=== PATIENT | female | born 2000 | race Two or more races ===

== ENCOUNTER 2024-09-22 18:03 | Emergency (ER) | payer OTHER, SELFPAY ==
--- NOTE | ~2024-09-22 | XR_ITS ---
CLINICAL HISTORY: pain 1 view abdomen Comparison: None Findings: No pneumoperitoneum or pneumatosis. No abnormal calcifications. No acute fractures. Arcf-am-lenwphom colonic stool burden. Nonobstructive bowel-gas pattern. IMPRESSION: Utac-jk-cncvwevt colonic stool burden. This document has been electronically signed by: Aston Leonardo MD on 09/22/2024 20:27:56
--- NOTE | 2024-09-22 18:09 | ED_ITS ---
HPI - General Adult General Chief complaint: General Medical Stated complaint: on and off fever, sick symptoms, possible ob Time Seen by Provider: 09/22/24 19:17 Source: patient Limitations: no limitations History of Present Illness ED Provider: Alison Arias PA-C HPI narrative: 24-year-old female presents with abdominal pain x3 days. Pain described as cramping that is intermittent over left mid abdomen. Associated nausea vomiting, patient states she vomited once, and now is just intermittently nauseous. Denies diarrhea. Her bowel movements have been irregular, she had a minimal bowel movement today. Denies distention, or inability to pass flatus. No sick contacts with similar symptoms. Related Data Allergies Allergy/AdvReac Type Severity Reaction Status Date / Time No Known Allergies Allergy Verified 09/22/24 18:11 Review of Systems 2 Review of Systems: Yes all other systems are reviewed and are negative Constitutional: Constitutional: Denies fatigue and Denies fever(s) Cardiovascular: Cardiovascular: Denies chest pain and Denies dyspnea Respiratory: Respiratory: Denies cough and Denies dyspnea Gastrointestinal: Gastrointestinal: Reports abdominal pain, Reports constipation, Denies diarrhea, Reports nausea and Reports vomiting Genitourinary: Genitourinary: Denies dysuria Endocrine: Endocrine: Denies fatigue [facility] Past Medical History Attestation statement: The following information was validated with the patient. Social History Social History Alcohol intake: never Smoked in Last 30 Days: No Use of substances other than those prescribed or required for medical reasons: No Any prior treatment program specific to substance use: No Advance Directives: No Advance Directives Information Provided: No Do you have a plan to hurt others: No Plan Physical Exam ED Vital Signs: Vital Signs - 24 hr 09/22/24 18:10 09/22/24 19:17 09/22/24 19:20 Temperature 98 F Pulse Rate 75 95 Respiratory Rate 19 18 18 Blood Pressure 132/76 114/7 L Pulse Oximetry 99 100 Oxygen Delivery Method Room Air Room Air BMI result Body Mass Index 41.3 Const Other: Alert Orientation/consciousness: patient oriented x3 Resp Effort & Inspection: normal respiratory effort Cardio Other: normal peripheral perfusion GI Other: abdomen is soft, nondistended, nontender no guarding Skin Other: calm cooperative Neuro General: patient oriented x3, gait normal, no focal motor deficits and CN's II- XI intact bilaterally Psych Other: calm cooperative Course Course Course Narrative: RME, this is a rapid medical exam performed by Cornel Fischer please refer to primary provider for complete H&P- 24 year old female presents for evaluation of fevers, bodyaches, headache, nausea and vomiting. She reports that she has been sick since Friday, 3 days total. She went to urgent care and was reportedly negative for COVID 19, influenza. She reports that she is 10 days late for her menstrual cycle but had negative urine at home Medical Decision Making Medical Decision Making MDM Narrative: 24-year-old female presents with abdominal pain x3 days. Pain described as cramping that is intermittent over left mid abdomen. Associated nausea vomiting, patient states she vomited once, and now is just intermittently nauseous. Denies diarrhea. Her bowel movements have been irregular, she had a minimal bowel movement today. Denies distention, or inability to pass flatus. No sick contacts with similar symptoms. no chronic issues History: Per patient I have considered the following differential diagnoses: Viral gastroenteritis, constipation, bowel obstruction, Diverticulitis Plan: screening labs were obtained from triage. Given nature of symptoms I am considering that she is likely constipated. Given left-sided symptoms I considered diverticulitis, however there was no focal left lower quadrant pain she has no diarrhea. Likewise, given the absence of the diarrhea, this is likely not viral gastroenteritis, furthermore her symptoms are minimal she is only intermittently nauseous at this point. She has no obstructive symptoms. We will order a KUB. I have independently reviewed the following tests: Labs: Slight leukocytosis, not anemic, no electrolyte abnormality, not , urine not infected, viral panel negative KUB:Findings: No pneumoperitoneum or pneumatosis. No abnormal calcifications. No acute fractures. Xrcn-yi-ljspytea colonic stool burden. Nonobstructive bowel-gas pattern. IMPRESSION: Ayeg-ek-jhcryfym colonic stool burden. Lab Data 09/22/24 18:27 09/22/24 18:27 Labs: Lab Results 09/22/24 Range/Units 18: WBC 12.1 H (4.8-10.8) X10*3/uL RBC 5.32 (4.20-5.50) X10*6/uL Hgb 12.3 (12.0-16.0) g/dl Hct 39.5 (37.0-47.0) % MCV 74.2 L (80.0-98.0) fL MCH 23.1 L (27.0-33.0) pg MCHC 31.1 (31.0-35.0) g/dl RDW 15.7 (11.0-16.0) % Plt Count 360 (160-400) X10*3/uL MPV 8.2 L (9.4-12.3) fL Immature Gran % (Auto) 0.3 (0.0-0.4) % Neut % (Auto) 57.9 (45-73) % Lymph % (Auto) 31.4 (20-40) % [place] % (Auto) 6.9 (2-11) % Eos % (Auto) 3.0 (0-4) % Baso % (Auto) 0.5 (0-2) % Lymph # (Auto) 3.8 (1.2-4.9) X10*3/uL [place] # (Auto) 0.8 (0.1-1.2) X10*3/uL Eos # (Auto) 0.4 (0.0-0.4) X10*3/uL Baso # (Auto) 0.1 (0.0-0.2) X10*3/uL Abs Immat Gran (auto) 0.04 H (0.00-0.03) X10*3/uL Absolute Neuts (auto) 7.0 (2.0-8.3) x10*3/uL Absolute Nucleated RBC 0.000 (0.0-0.012) X10*3/uL Nucleated RBC % (auto) 0.0 (0.0-0.2) /100WBC Sodium 138 (135-145) mmol/L Potassium 3.9 (3.3-5.1) mmol/L Chloride 108 (96-108) mmol/L Carbon Dioxide 24 (22-29) mmol/L Anion Gap 10 L (12-20) BUN 11 (9-16) mg/dL Creatinine 0.69 (0.5-1.4) mg/dL Estim Creat Clear Calc 143.4 Estimated GFR > 60 Random Glucose 87 (60-115) mg/dL Calcium 9.1 (8.4-10.2) mg/dL Total Bilirubin 0.2 (0.0-1.0) mg/dL AST 27 (5-31) U/L ALT 33 H (0-31) U/L Alkaline Phosphatase 97 (39-117) U/L Total Protein 7.8 (6.5-8.0) g/dL Albumin 4.0 (3.5-5.0) g/dL Lipase 24 (8-78) U/L Beta HCG, Quant < 2 mIU/mL Urine Color Yellow Urine Appearance Clear Urine pH 7.0 (5.0-9.0) Ur Specific [place] 1.015 (1.005-1.025) Urine Protein Negative (Neg-Trace) mg/dL Urine Glucose (UA) Negative (Negative) mg/dL Urine Ketones Negative (Negative) mg/dL Urine Blood Negative (Negative) Urine Nitrite Negative (Negative) Ur Leukocyte Esterase Small (1+) H (Negative) Urine RBC 0-2 (0-2) /HPF Urine WBC 6-10 H (0-5) /HPF Ur Squamous Epith Cells 3-5 (0-2) /HPF Urine Bacteria Trace (None Seen) Hyaline Casts 0-2 (0-2) /LPF Influenza Type A (PCR) NEGATIVE (Negative) Influenza Type B (PCR) NEGATIVE (Negative) RSV RNA Qual (PCR) NEGATIVE (Negative) SARS-CoV-2 RNA (RT-PCR) NEGATIVE (Negative) S. pyogenes GrpA HENRY Negative (Negative) Discharge Plan Discharge Clinical Impression: Constipation Patient Disposition: Home, Self-Care Instructions: Constipation (ED) Additional Instructions: you were found to be constipated. All of your labs were normal. See home care instructions. You need to use the combination of ednj-sef-[id number] Colace, which is the stool softener, with bqxt-rtc-[id number] MiraLax, twice a day, until you begin having regular normal bowel movements. Follow up with your primary care provider as needed. Stand Alone Forms: Work/School Release Print Language: [place]
[2024-09-22 18:10] VITALS: BP 132/76; PULSE 75; RESP 19; TEMP 36.6; O2SAT 99; BMI 41.3
[2024-09-22 18:33] LABS: MANUAL DIFF FLAG NO
[2024-09-22 18:35] LABS: Basophils Absolute Auto 0.1 X10*3/uL (0.0-0.2); Basophils Percent Auto 0.5 % (0-2); Eosinophils Absolute Auto 0.4 X10*3/uL (0.0-0.4); Hematocrit 39.5 % (37.0-47.0); Hemoglobin 12.3 g/dl (12.0-16.0); Imm Gran Abs Auto 0.04 X10*3/uL (0.00-0.03); Imm Gran Pct Auto 0.3 % (0.0-0.4); Lymphocytes Absolute Auto 3.8 X10*3/uL (1.2-4.9); Lymphocytes Percent Auto 31.4 % (20-40); Mean Corpuscular HGB Conc 31.1 g/dl (31.0-35.0); Mean Corpuscular Hemoglobin 23.1 pg (27.0-33.0); Mean Corpuscular Volume 74.2 fL (80.0-98.0); Mean Platelet Volume 8.2 fL (9.4-12.3); Monocytes Absolute Auto 0.8 X10*3/uL (0.1-1.2); Monocytes Percent Auto 6.9 % (2-11); Neutrophils Percent Auto 57.9 % (45-73); Platelet Count 360 X10*3/uL (160-400); Red Blood Count 5.32 X10*6/uL (4.20-5.50); Red Cell Distribution Width 15.7 % (11.0-16.0); White Blood Count 12.1 X10*3/uL (4.8-10.8)
[2024-09-22 18:36] LABS: Appearance Urine Clear; Color Urine Yellow; Glucose Urine UA Negative (Negative); Leukocyte Esterase Urine Small (1+) (Negative); Nitrite Urine Negative (Negative); Specific Gravity - Urine 1.015 (1.005-1.025); UMIC TRIGGER UACC YES; Urine Blood Negative (Negative); Urine Ketones Negative (Negative); Urine Protein Negative (Neg-Trace)
[2024-09-22 18:38] LABS: Bacteria Urine Trace (None Seen); Hyaline Casts Urine 0-2 /LPF (0-2); RBC Urine 0-2 /HPF (0-2); UACC Culture Trigger YES
[2024-09-22 18:44] LABS: IDNOW Serial# 58CA691E; Strep A Nucleic Acid Negative (Negative)
[2024-09-22 18:55] LABS: Alanine Aminotransferase 33 U/L (0-31); Alkaline Phosphatase 97 U/L (39-117); Anion Gap 10 (12-20); Aspartate Amino Transferase 27 U/L (5-31); Bilirubin Total 0.2 mg/dL (0.0-1.0); Blood Urea Nitrogen 11 mg/dL (9-16); Calcium 9.1 mg/dL (8.4-10.2); Carbon Dioxide 24 mmol/L (22-29); Chloride 108 mmol/L (96-108); Creatinine Clr Calc Pharmacy 143.4; Estimated Glomerular Filt Rate > 60; Glucose Random 87 mg/dL (60-115); Potassium 3.9 mmol/L (3.3-5.1); Sodium 138 mmol/L (135-145); Total Protein 7.8 g/dL (6.5-8.0)
[2024-09-22 18:56] LABS: Lipase 24 U/L (8-78)
[2024-09-22 18:59] LABS: HCG Quantitative < 2 mIU/mL
[2024-09-22 19:11] LABS: Influenza A PCR NEGATIVE (Negative); Influenza B PCR NEGATIVE (Negative); Resp Syncy Virus RNA Qual PCR NEGATIVE (Negative); SARS COV2 PCR INHOUSE NEGATIVE (Negative)
[2024-09-22 19:17] VITALS: BP 114/7; PULSE 95; RESP 18; O2SAT 100
[2024-09-22 19:20] VITALS: RESP 18
[2024-09-22 21:22] VITALS: BP 100/47; PULSE 63; RESP 16; TEMP 36.7; O2SAT 98
== END 2024-09-22 21:22 | disposition home or self-care (01) ==
PROVIDERS: Physician Assistant; Emergency Provider Emergency Medicine
DX: K59.00 Constipation, unspecified (principal); R11.2 Nausea with vomiting, unspecified; Z03.818 Encounter for observation for suspected exposure to other biological agents ruled out
CPT/HCPCS: 0241U; 74018; 80053; 81001; 83690; 84702; 85025; 87086; 87651; 99283; 99284

== ENCOUNTER → 2024-09-22 19:53 | Outpatient (BNV) | payer OTHER, SELFPAY | PROVIDERS: Emergency Provider Emergency Medicine; Visit Provider Radiology Diagnostic Radiology | DX: K56.41 Fecal impaction (principal) | CPT/HCPCS: 74018 ==